=== PATIENT | female | born 1965 | race Caucasian/White ===

== ENCOUNTER 2020-09-09 12:11 | Outpatient (REF) | payer BC, SELFPAY ==
--- NOTE | 2020-09-09 12:33 | XR_ITS ---
EXAMINATION: XR CERVICAL SPINE CLINICAL INFORMATION: Neck pain. Headaches. COMPARISON: None TECHNIQUE: 6 views of the cervical spine, inclusive of flexion and extension views, were obtained. FINDINGS: The vertebral alignment is normal. No intrinsic bony abnormality. Small endplate osteophytes at C5-C6 with mild disc space narrowing. The disc heights and neural foramina are otherwise well maintained. The posterior elements are normal. No fracture or subluxation. The atlantoaxial articulation is maintained. The surrounding prevertebral soft tissues are unremarkable. XR/XR cervical spine 5V IMPRESSION: Mild degenerative changes at C5-C6.
[2020-09-09 14:01] LABS: Ferritin 75 ng/mL (10-250)
[2020-09-10 15:21] LABS: Cyclic Citrullinated Peptide <16 UNITS
[2020-09-12 23:11] LABS: Cardiolipin IgG Ab <14 GPL; Cardiolipin IgM Ab <12 MPL
== END 2020-09-09 12:12 | disposition home or self-care (01) ==
LOC: HO.LAB 12:11
PROVIDERS: PCP Family Medicine; Visit Provider Family Medicine
DX: M54.2 Cervicalgia (principal); R51.9 Headache, unspecified; M79.10 Myalgia, unspecified site; R53.83 Other fatigue
CPT/HCPCS: 72050; 82550; 82728; 84443; 86147; 86200

== ENCOUNTER 2020-10-07 08:20 | Outpatient (REF) | payer BC, SELFPAY ==
[2020-10-07 09:00] LABS: Basophils Percent Auto 0.5 % (0-2); Eosinophils Absolute Auto 0.2 X10*3/uL (0.0-0.4); Eosinophils Percent Auto 2.2 % (0-4); Hematocrit 36.8 % (37-47); Hemoglobin 12.7 g/dl (12.0-16.0); Imm Gran Abs Auto 0.02 X10*3/uL (0.00-0.03); Imm Gran Pct Auto 0.2 % (0.0-0.4); Lymphocytes Absolute Auto 3.9 X10*3/uL (1.2-4.9); Lymphocytes Percent Auto 45.8 % (20-40); Mean Corpuscular HGB Conc 34.5 g/dl (31.0-35.0); Mean Corpuscular Hemoglobin 31.6 pg (27.0-33.0); Mean Corpuscular Volume 91.5 fL (80-98); Monocytes Absolute Auto 0.5 X10*3/uL (0.1-1.2); Monocytes Percent Auto 5.5 % (2-11); Neutrophils Absolute Auto 3.9 X10*3/uL (2.0-8.3); Neutrophils Percent Auto 45.8 % (45-73); Platelet Count 322 X10*3/uL (160-400); Red Blood Count 4.02 X10*6/uL (4.20-5.50); Red Cell Distribution Width 12.5 % (11.0-16.0); White Blood Count 8.5 X10*3/uL (4.8-10.8)
[2020-10-07 09:02] LABS: MANUAL DIFF FLAG NO
--- NOTE | 2020-10-07 09:15 | EMG_ITS ---
Bilateral median and ulnar motor and sensory studies were performed. Bilateral radial sensory studies were performed. Paraspinal muscles were tested bilaterally and some right upper extremity muscles were tested. 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 MD TIARA Panda/LEYLA / [phone]
[2020-10-07 09:22] LABS: Alanine Aminotransferase 61 U/L (0-31); Albumin Level 4.4 g/dL (3.5-5.0); Alkaline Phosphatase 97 U/L (39-117); Anion Gap 12 (12-20); Aspartate Amino Transferase 48 U/L (5-31); Bilirubin Total 0.3 mg/dL (0.0-1.0); Blood Urea Nitrogen 12 mg/dL (9-16); Calcium 9.3 mg/dL (8.4-10.2); Carbon Dioxide 30 mmol/L (22-29); Chloride 104 mmol/L (96-108); Estimated Glomerular Filt Rate > 60; Glucose Random 97 mg/dL (60-115); Potassium 4.3 mmol/l (3.3-5.1); Sodium 142 mmol/L (135-145); Total Protein 7.6 g/dL (6.5-8.0)
[2020-10-07 10:18] LABS: Erythrocyte Sedimentation Rate 16 MM/HR (0-20)
== END 2020-10-07 08:21 | disposition home or self-care (01) ==
LOC: HO.NEURO 08:20
PROVIDERS: Visit Provider Family Medicine
DX: R27.0 Ataxia, unspecified (principal); M54.2 Cervicalgia; R53.1 Weakness; R00.0 Tachycardia, unspecified
CPT/HCPCS: 36415; 80053; 85025; 85652; 95861; 95886; 95911

== ENCOUNTER 2021-04-01 12:33 | Outpatient (REF) | payer BC, SELFPAY ==
[2021-04-01 14:27] LABS: Alanine Aminotransferase 41 U/L (0-31); Albumin Level 4.4 g/dL (3.5-5.0); Alkaline Phosphatase 96 U/L (39-117); Aspartate Amino Transferase 38 U/L (5-31); Bilirubin Direct < 0.2 mg/dL (0.0-0.5); Bilirubin Total 0.3 mg/dL (0.0-1.0); Total Protein 7.2 g/dL (6.5-8.0)
== END 2021-04-01 12:34 | disposition home or self-care (01) ==
LOC: HO.10HDL 12:33
PROVIDERS: Visit Provider Family Medicine
DX: K75.81 Nonalcoholic steatohepatitis (NASH) (principal)
CPT/HCPCS: 36415; 80076

== ENCOUNTER 2021-09-02 13:53 | Outpatient (REF) | payer BC, SELFPAY ==
--- NOTE | ~2021-09-02 | MM_ITS ---
EXAMINATION: BONE DENSITOMETRY CLINICAL INDICATION: Screening for osteoporosis. COMPARISON: This is the patient's baseline examination. TECHNIQUE: Using a [employer] DXA System (software version: 13.1) manufactured by [employer], dual-energy x-ray absorptiometry was performed of the lumbar spine and left hip. The images are of good technical quality. Summary results are attached. FINDINGS: AP SPINE L1-L4: BMD 0.960 g/cm2, Z-score -1.1, T-score -1.8, osteopenia. LEFT FEMUR, NECK: BMD 0.806 g/cm2, Z-score 0.7, T-score -1.7, osteopenia. LEFT FEMUR, TOTAL: BMD 0.827 g/cm2, Z-score -0.8, T-score -1.4, osteopenia. IDENTIFIED RISK FACTORS: Menopause, low calcium intake. HISTORY OF FRACTURE: None listed. MEDICATIONS: Multivitamin. MM/XR DEXA axial skeleton IMPRESSION: 1. DIAGNOSIS: Osteopenia based on the lowest T-score value of -1.8 in the lumbar spine applying World Health Organization criteria. 2. 10-YEAR FRACTURE RISK PREDICTION, FRAX: Major osteoporotic fracture (clinical spine, forearm, hip or shoulder) 7.3%. Hip fracture 0.7%. 3. Treatment Recommendations: NOF guidelines recommend consideration for treatment in postmenopausal women and men age 50 and older presenting with the following: -A hip or vertebral (clinical or morphometric) fracture. -T-score less than or equal to -2.5 at the femoral neck or spine after appropriate evaluation to exclude secondary causes. -Low bone mass at the hip or spine and a 10-year fracture probability by FRAX of greater than or equal to 3% for hip fracture or greater than or equal to 20% for major osteoporotic fracture based on the [place] adapted WHO algorithm. 4. Other Recommendations: All treatment decisions require clinical judgment and consideration of individual patient factors, including patient preferences, comorbidities, previous drug use, risk factors not captured in the FRAX model (e.g. frailty, falls, vitamin D deficiency, increased bone turnover, interval significant decline in bone density) and possible under or overestimation of fracture risk by FRAX. Additional medical evaluation for secondary cause of low bone mineral density may be appropriate. FUTURE SCAN RECOMMENDATION: People with diagnosed cases of osteoporosis or at high risk for fracture should have regular bone mineral density tests. For patients eligible for Medicare, routine testing is allowed once every 2 years. The testing frequency can be increased to one year for patients who have rapidly progressing disease, those who are receiving or discontinuing medical therapy to restore bone mass, or have additional risk factors.
== END 2021-09-02 13:54 | disposition home or self-care (01) ==
LOC: HO.MAMMO 13:53
PROVIDERS: PCP Family Medicine; Visit Provider Family Medicine
DX: Z13.820 Encounter for screening for osteoporosis (principal); M85.80 Other specified disorders of bone density and structure, unspecified site; Z78.0 Asymptomatic menopausal state; Z79.899 Other long term (current) drug therapy; Z82.62 Family history of osteoporosis
CPT/HCPCS: 77080

== ENCOUNTER 2023-12-29 07:00 | Outpatient (REF) | payer BC, SELFPAY ==
[2023-12-29 08:23] LABS: Alanine Aminotransferase 68 U/L (0-31); Aspartate Amino Transferase 47 U/L (5-31); Cholesterol 275 mg/dL (<200); Glucose Fasting 135 mg/dL (60-99); HDL Cholesterol 53 mg/dL (>40); LDL Cholesterol Calculated 182 mg/dL (<100); Triglycerides 202 mg/dL (<150)
== END 2023-12-29 07:01 | disposition home or self-care (01) ==
LOC: HO.LAB 07:00
PROVIDERS: PCP Family Medicine; Visit Provider Family Medicine
DX: E78.00 Pure hypercholesterolemia, unspecified (principal); K75.81 Nonalcoholic steatohepatitis (NASH)
CPT/HCPCS: 36415; 80061; 82947; 84450; 84460

== ENCOUNTER 2024-01-07 06:02 | Outpatient (REF) | payer BC, SELFPAY ==
[2024-01-07 07:41] LABS: Estimated Average Glucose 126 mg/dL
[2024-01-07 07:57] LABS: Glucose Fasting 133 mg/dL (60-99)
[2024-01-09 22:23] LABS: TS Negative Control Passed; TS Panel A 2; TS Panel B 4; TS Positive Control Passed; TSpotTB Negative (Negative)
== END 2024-01-07 06:03 | disposition home or self-care (01) ==
LOC: HO.LAB 06:02
PROVIDERS: PCP Family Medicine; Visit Provider Family Medicine
DX: Z11.1 Encounter for screening for respiratory tuberculosis (principal); R73.9 Hyperglycemia, unspecified
CPT/HCPCS: 36415; 82947; 83036; 86481

== ENCOUNTER 2024-08-12 06:01 | Outpatient (REF) | payer BC, SELFPAY ==
[2024-08-12 06:17] LABS: MANUAL DIFF FLAG NO
[2024-08-12 06:30] LABS: Basophils Absolute Auto 0.1 X10*3/uL (0.0-0.2); Basophils Percent Auto 0.6 % (0-2); Eosinophils Absolute Auto 0.1 X10*3/uL (0.0-0.4); Eosinophils Percent Auto 1.2 % (0-4); Hematocrit 36.7 % (37.0-47.0); Hemoglobin 12.8 g/dl (12.0-16.0); Imm Gran Abs Auto 0.01 X10*3/uL (0.00-0.03); Imm Gran Pct Auto 0.1 % (0.0-0.4); Lymphocytes Absolute Auto 4.1 X10*3/uL (1.2-4.9); Lymphocytes Percent Auto 50.8 % (20-40); Mean Corpuscular HGB Conc 34.9 g/dl (31.0-35.0); Mean Corpuscular Hemoglobin 32.1 pg (27.0-33.0); Monocytes Absolute Auto 0.5 X10*3/uL (0.1-1.2); Monocytes Percent Auto 5.7 % (2-11); Neutrophils Absolute Auto 3.3 x10*3/uL (2.0-8.3); Neutrophils Percent Auto 41.6 % (45-73); Platelet Count 311 X10*3/uL (160-400); Red Blood Count 3.99 X10*6/uL (4.20-5.50); Red Cell Distribution Width 12.7 % (11.0-16.0); White Blood Count 8.1 X10*3/uL (4.8-10.8)
[2024-08-12 06:42] LABS: Estimated Average Glucose 120 mg/dL; Hemoglobin A1C 129.5685 umol/L; Hemoglobin A1c % 5.8 % (<6.0); Total Hemoglobin (HGBA1C) 3221.2985 umol/L
[2024-08-12 06:46] LABS: Alanine Aminotransferase 28 U/L (0-31); Albumin Level 4.3 g/dL (3.5-5.0); Alkaline Phosphatase 62 U/L (39-117); Anion Gap 13 (12-20); Aspartate Amino Transferase 21 U/L (5-31); Bilirubin Total 0.6 mg/dL (0.0-1.0); Blood Urea Nitrogen 18 mg/dL (9-16); Calcium 9.5 mg/dL (8.4-10.2); Carbon Dioxide 22 mmol/L (22-29); Chloride 111 mmol/L (96-108); Estimated Glomerular Filt Rate > 60; Glucose Fasting 131 mg/dL (60-99); Sodium 142 mmol/L (135-145); Total Protein 7.2 g/dL (6.5-8.0)
[2024-08-19 15:37] LABS: FIB-ALT 18 U/L (6-29); FIB-Alpha-2-Macroglobulin 142 mg/dL (106-279); FIB-Apolipoprotein A1 126 mg/dL (101-198); FIB-GGT 44 U/L (3-70); FIB-Haptoglobin 215 mg/dL (43-212); FIB-Total Bilirubin 0.4 mg/dL (0.2-1.2); Liver Fibrosis Score 0.12; Liver Fibrosis Stage F0; Nec Inflam Act Grade A0; Nec Inflam Act Score 0.05; Reference ID 5176375
== END 2024-08-12 06:02 | disposition home or self-care (01) ==
LOC: HO.LAB 06:01
PROVIDERS: PCP Family Medicine; Visit Provider Family Medicine
DX: R53.83 Other fatigue (principal); K75.81 Nonalcoholic steatohepatitis (NASH); R73.9 Hyperglycemia, unspecified
CPT/HCPCS: 36415; 80053; 81596; 83036; 85025

== ENCOUNTER 2024-10-06 10:45 | Outpatient (REF) | payer BC, SELFPAY ==
[2024-10-06 11:16] LABS: Appearance Urine Clear; Color Urine Dark Yellow; Glucose Urine UA Negative (Negative); Leukocyte Esterase Urine Negative (Negative); Nitrite Urine Negative (Negative); Specific Gravity - Urine 1.025 (1.005-1.025); UMIC TRIGGER UACC YES; Urine Blood Small (1+) (Negative); Urine Ketones Negative (Negative); Urine Protein Trace mg/dL (Neg-Trace)
[2024-10-06 11:21] LABS: Bacteria Urine None Seen (None Seen); Hyaline Casts Urine 0-2 /LPF (0-2); Squamous Epithelial Cell Urine 0-2 /HPF (0-2); WBC Urine 0-5 /HPF (0-5)
== END 2024-10-06 10:46 | disposition home or self-care (01) ==
LOC: HO.LAB 10:45
PROVIDERS: PCP Family Medicine; Visit Provider Family Medicine
DX: R30.0 Dysuria (principal); N39.0 Urinary tract infection, site not specified
CPT/HCPCS: 81001; 87086

== ENCOUNTER 2024-10-17 06:05 | Outpatient (REF) | payer BC, SELFPAY ==
[2024-10-17 07:53] LABS: Estimated Average Glucose 108 mg/dL; Hemoglobin A1C 120.2479 umol/L; Hemoglobin A1c % 5.4 % (<6.0)
[2024-10-17 08:09] LABS: Glucose Fasting 149 mg/dL (60-99)
[2024-10-17 08:17] LABS: Creatinine Urine 176.79 mg/dL; Microalbum/Creatinine Ratio Ur 37.8 ug/mg cr (<30)
== END 2024-10-17 06:06 | disposition home or self-care (01) ==
LOC: HO.LAB 06:05
PROVIDERS: PCP Family Medicine; Visit Provider Family Medicine
DX: R73.01 Impaired fasting glucose (principal)
CPT/HCPCS: 36415; 82043; 82570; 82947; 83036

== ENCOUNTER 2025-03-23 09:42 | Outpatient (AMB) | payer BC, SELFPAY ==
--- NOTE | 2025-03-23 09:44 | A.OFFVIS_ITS ---
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 Intake Note: Radha is a 59 year old left hand dominant female who presents today as a new patient with complaints of left shoulder pain. Patient reports ongoing left shoulder for many years now, she was previously seen and given an injection about 6 years ago. She reports that this injection was significantly helpful. Recently, within the last 6 months she has had increasing pain that radiates to her neck and causes headaches. At this time her pain has improved, she has done some home exercise/stretching that she believes decreased her pain. Denies numbness and tingling. 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 Patient reports ongoing left shoulder for many years now, she was previously seen and given an injection about 6 years ago. She reports that this injection was significantly helpful. Recently, within the last 6 months she has had increasing pain that radiates to her neck and causes headaches. At this time her pain has improved, she has done some home exercise/stretching that she believes decreased her pain. Denies numbness and tingling. [facility] Surgical History (Updated 03/23/25 @ 10:23 by Alexandra Espinoza CMA) History of hysterectomy (~08/2024) Social History (Updated 03/23/25 @ 10:21 by Alexandra Espinoza CMA) Current occupational status: employed Current occupation: Caregiver Physical Exam Vital Signs: BMI result Body Mass Index 23.2 Extrem Other: Normal left shoulder exam. Full range of motion. Negative provocative tests. Assessment & Plan Assessment & Plan (1) Normal shoulder exam: Code(s): Z00.00 - Encounter for general adult medical examination without abnormal findings Category: Medical Plan: Normal shoulder exam. Did have symptoms of bursitis but these have resolved. May follow up if pain returns. Coding Level of Care Code New Pt Level 3 (58142) Diagnoses Normal shoulder exam Z00.00
[2025-03-23 10:18] VITALS: BMI 23.2
--- OUTSIDE RECORDS SUMMARY | 2025-03-23 10:22 | XMS_ITS ---
[facility] Name [facility] History of Medication Use Medication Directions Dispensed Refills Start Date End Date Stat us metFORMIN (GLUCOPHAGE) 500 mg tablet Take 1 tablet (500 mg total) by mouth 2 (two) times a day with meals. 12/23/2024 active ondansetron (ZOFRAN) 4 mg tablet Take 1 tablet (4 mg total) by mouth every 8 (eight) hours if needed for nausea or vomiting. 09/03/2024 active oxyCODONE (ROXICODONE) 5 mg immediate release tablet Take 1 tablet (5 mg total) by mouth every 6 (six) hours if needed for severe pain. Max Daily Amount: 20 mg 09/03/2024 active simethicone (MYLICON) 80 mg chewable tablet Chew 1 tablet (80 mg total) every 6 (six) hours if needed (gas pain / bloating). 09/03/2024 active cholecalciferol (VITAMIN D-3) 50 mcg (2,000 unit) tablet Take 1 tablet (2,000 Units total) by mouth 1 (one) time each day. active magnesium 250 mg tablet Take 250 mg by mouth 1 (one) time each day. active melatonin 3 mg tablet Take 0.5 tablets (1.5 mg total) by mouth at bedtime. active montelukast (SINGULAIR) 10 mg tablet Take 1 tablet (10 mg total) by mouth 1 (one) time each day. active multivitamin with minerals (MULTIPLE VITAMIN-MINERALS ORAL) Take 1 tablet by mouth 1 (one) time each day. active OMEPRAZOLE ORAL Take 20 mcg by mouth 1 (one) time each day. active Problems Problem Status Onset Date Problem Type Date of Resolution Source Endometrial hyperplasia without atypia, complex active 2024-08-25 ProblemAct [facility] Microscopic hematuria active EncounterDiagnosisAct [facility]_THS PREETHI Rupture of operation wound active 2024-09-30 ProblemAct [facility] Type 2 diabetes mellitus without complication, without long-term current use of insulin (CMS/HCC) active EncounterDiagnosisAct C T_THSFRAN Chronic RLQ pain active 2021-09-27 ProblemAct C T_THSFRAN Dyslipidemia active EncounterDiagnosisAct CT_THSFRAN Encounters Encounter Type Encounter Reason Primary Diagnosis Location Date Ambulatory Establish Care Type 2 diabetes mellitus without complications [facility] 12/23/2024 Care Team Organization Name Specialty Phone Email Start Date End Da te [facility] Aguila Ambriz MD Primary Care 12/30/2024 [facility] Aguila Ambriz MD Primary Care 12/23/2024
== END 2025-03-23 11:24 | disposition home or self-care (01) ==
LOC: HO.HOS 09:42
PROVIDERS: PCP Family Medicine; Visit Provider Orthopaedic Surgery
DX: M25.512 Pain in left shoulder (principal)
CPT/HCPCS: 99203